=== PATIENT | female | born 1960 | race Caucasian/White ===

== ENCOUNTER 2019-06-16 00:03 | Inpatient (IN) | payer OTHER ==
[~2019-06-16] VITALS: Ht 154.9 cm; Wt 77.3 kg
[~2019-06-16 00:03] MED LIST: Augmentin 875-1 EACH PO; CITA20 PO; CYCL0.05OP BOTHEYES; HYDCHL25 PO; Norco 5-325 Ta1 EACH PO; ONDA4ODT MM; TRAM50 PO
[2019-06-16 00:33] LABS: BASOPHILS ABSOLUTE AUTO 0.02 K/mm3 (0.00-0.23); BASOPHILS PERCENT AUTO 0 % (0-2); EOSINOPHILS ABSOLUTE AUTO 0.01 K/mm3 (0.00-0.68); EOSINOPHILS PERCENT AUTO 0 % (0-6); Hematocrit 48.5 % (33.0-51.0); Hemoglobin 16.1 g/dL (11.5-16.0); IMMATURE GRAN ABSOLUTE AUTO 0.03 K/mm3 (0.00-0.10); IMMATURE GRAN PERCENT AUTO 0 % (0-1); LYMPHOCYTES ABSOLUTE AUTO 1.58 K/mm3 (0.84-5.20); LYMPHOCYTES PERCENT AUTO 14 % (21-46); MONOCYTES ABSOLUTE AUTO 0.49 K/mm3 (0.16-1.47); MONOCYTES PERCENT AUTO 4 % (4-13); Mean Corpuscular HGB Conc 33.2 g/dL (31.5-36.5); Mean Corpuscular Volume 91 fL (80-100); Mean Platelet Volume 9.7 fL (9.1-12.4); NEUTROPHILS PERCENT AUTO 82 % (41-73); Platelet Count 285 K/mm3 (150-400); RDW Coefficient Variation 12.7 % (11.7-14.2); Red Blood Cell Count 5.36 M/mm3 (3.80-5.20); White Blood Cell Count 11.73 K/mm3 (4.00-11.30)
[2019-06-16 00:51] LABS: Alanine Aminotransfer (ALT/SGP 832 U/L (12-78); Albumin, Blood 4.2 g/dL (3.4-5.0); Albumin/Globulin Ratio 0.9 (0.8-1.8); Alk Phos 292 U/L (50-136); Anion Gap 12 mmol/L (6-16); Aspartate Aminotrans (AST/SGOT 377 U/L (12-37); Bilirubin, Total 1.2 mg/dL (0.1-1.0); Blood Urea Nitrogen 25 mg/dL (8-24); Bun/Creatinine Ratio 28.5 (12.0-20.0); CO2, Blood 25 mmol/L (21-32); Calcium, Blood 10.4 mg/dL (8.5-10.1); Chloride, Blood 103 mmol/L (98-108); Creatinine, Blood 0.88 mg/dL (0.40-1.00); Globulin, Blood 4.9 g/dL (2.2-4.0); Glomerular Filtration Rate >60 (60-); Glucose, Blood 160 mg/dL (70-99); Potassium, Blood 3.5 mmol/L (3.5-5.5); Sodium, Blood 140 mmol/L (136-145); Total Protein, Blood 9.1 g/dL (6.4-8.2)
--- NOTE | 2019-06-16 03:38 | NUR ---
NEW ADMIT CAME FROM ER WITH SPOUSE, DX ACUTE PANCREATITIS. PT ABLE TO STAND AND TRANSFER TO BED WITH MIN ASSIST BUT VERY WEAK, ILL APPEARING. PT ON 1L NC SPO2 AT 99%, REMOVED OXYGEN. PAIN IS TOLERABLE AT THIS TIME SO IS NAUSEA, PT RECEIVED DILAUDID AND PHENERGAN JUST PRIOR TO ARRIVAL TO FLOOR. PT ORIENTED TO ROOM LAYOUT AND CALL SYSTEM. REVIEWED ORDERS WITH PT AND SPOUSE.
[2019-06-16 04:09] LABS: CHOL/HDL RATIO 2.9; Cholesterol 243 mg/dL (50-200); HDL Cholesterol 83 mg/dL (>39); LDL/HDL RATIO 1.7; Low Density Lipoprotein Chol 139 mg/dL (0-110); Triglycerides 107 mg/dL (30-160); Very Low Density Lipoprot Chol 21 mg/dL (6-32)
--- NOTE | 2019-06-16 05:33 | NUR ---
PT HAS DONE WELL SINCE ARRIVING TO FLOOR. STATES PAIN AND NAUSEA ARE TOLERABLE. CONT NPO WITH IVF AND PAIN AND NAUSEA MANAGEMENT. CALL LIGHT IN REACH.
[2019-06-16 13:24] LABS: Hematocrit 42.9 % (33.0-51.0); Hemoglobin 13.9 g/dL (11.5-16.0); Mean Corpuscular HGB Conc 32.4 g/dL (31.5-36.5); Mean Corpuscular Volume 93 fL (80-100); Mean Platelet Volume 9.6 fL (9.1-12.4); Platelet Count 233 K/mm3 (150-400); RDW Coefficient Variation 13.1 % (11.7-14.2); RDW Standard Deviation 44.6 fL (35.1-46.3); Red Blood Cell Count 4.64 M/mm3 (3.80-5.20); White Blood Cell Count 10.06 K/mm3 (4.00-11.30)
[2019-06-16 14:25] LABS: Alanine Aminotransfer (ALT/SGP 535 U/L (12-78); Albumin, Blood 3.4 g/dL (3.4-5.0); Albumin/Globulin Ratio 0.8 (0.8-1.8); Alk Phos 203 U/L (50-136); Anion Gap 8 mmol/L (6-16); Aspartate Aminotrans (AST/SGOT 163 U/L (12-37); Bilirubin, Total 0.7 mg/dL (0.1-1.0); Blood Urea Nitrogen 20 mg/dL (8-24); Bun/Creatinine Ratio 26.4 (12.0-20.0); CO2, Blood 26 mmol/L (21-32); Chloride, Blood 107 mmol/L (98-108); Creatinine, Blood 0.76 mg/dL (0.40-1.00); Glomerular Filtration Rate >60 (60-); Glucose, Blood 110 mg/dL (70-99); Potassium, Blood 3.1 mmol/L (3.5-5.5); Sodium, Blood 141 mmol/L (136-145); Total Protein, Blood 7.4 g/dL (6.4-8.2)
[2019-06-16 14:26] LABS: Calcium, Blood 8.3 mg/dL (8.5-10.1)
--- NOTE | 2019-06-16 18:00 | NUR ---
SHIFT SUMMARY PT BEEN NPO. REPORTS STARTING TO FEEL BETTER. PT FAMILY IN/OUT OF ROOM TO SEE PT. PT VOIDING. PT BEEN ASSISTED WITH ADL'S PRN.
--- NOTE | 2019-06-16 18:26 | NUR ---
IMAGING IN ROOM.
[2019-06-17 05:04] LABS: Alanine Aminotransfer (ALT/SGP 338 U/L (12-78); Albumin, Blood 2.8 g/dL (3.4-5.0); Albumin/Globulin Ratio 0.7 (0.8-1.8); Alk Phos 155 U/L (50-136); Anion Gap 9 mmol/L (6-16); Aspartate Aminotrans (AST/SGOT 88 U/L (12-37); Bilirubin, Total 1.1 mg/dL (0.1-1.0); Blood Urea Nitrogen 15 mg/dL (8-24); Bun/Creatinine Ratio 22.5 (12.0-20.0); CO2, Blood 22 mmol/L (21-32); Calcium, Blood 7.7 mg/dL (8.5-10.1); Chloride, Blood 108 mmol/L (98-108); Creatinine, Blood 0.67 mg/dL (0.40-1.00); Globulin, Blood 3.9 g/dL (2.2-4.0); Glomerular Filtration Rate >60 (60-); Glucose, Blood 80 mg/dL (70-99); Potassium, Blood 2.8 mmol/L (3.5-5.5); Sodium, Blood 139 mmol/L (136-145); Total Protein, Blood 6.7 g/dL (6.4-8.2)
--- NOTE | 2019-06-17 06:17 | NUR ---
PT HAS DONE WELL DURING NIGHT. STATES PAIN HAS IMPROVED OVERALL AND DENIES ANY NAUSEA. LIPASE IS BETTER THIS AM HOWEVER K+ WAS LOWER. CALLED DR. ASH AND OBTAINED ORDER FOR 40MEQ OF KCL. PT STILL NPO, IVF INFUSING WITH KCL RUNNING CONCURRENTLY. CALL LIGHT IN REACH. WILL REPORT OFF.
--- NOTE | 2019-06-17 07:45 | NUR ---
pt reports pain ruq abd mild nausea pt using ice chips to keep her mouth from being dry nut she spits them out stated overall the pain is much better 2-3/10
--- NOTE | 2019-06-17 10:44 | NUR ---
pt req pain meds fent 25mcg given pt has loose bm with some small chuncks pt stated it had been several days pt had some cramping off and on earlier with gas offered meds earlier pt declined pt just had a shower
--- NOTE | 2019-06-17 16:35 | NUR ---
dr denney by to see pt
--- NOTE | 2019-06-17 18:00 | NUR ---
pt visiting with friends and family
--- NOTE | 2019-06-18 03:29 | NUR ---
SHIFT SUMMARY PT APPEARS TO HAVE SLEPT T/O MOST OF SHIFT W/FAMILY AT BEDSIDE. IS NPO, MEDICATED ONCE FOR N/V W/ IV ZOFRAN. REPORTS PAIN AT TOLERABLE LEVEL W/ 25MCG FENTANYL. IND WITH SBA TO BATHROOM. WILL CONT TO MONITOR AND GIVE REPORT TO ONCOMING RN.
[2019-06-18 04:16] LABS: BASOPHILS ABSOLUTE AUTO 0.03 K/mm3 (0.00-0.23); BASOPHILS PERCENT AUTO 0 % (0-2); EOSINOPHILS ABSOLUTE AUTO 0.01 K/mm3 (0.00-0.68); EOSINOPHILS PERCENT AUTO 0 % (0-6); Hematocrit 38.1 % (33.0-51.0); IMMATURE GRAN ABSOLUTE AUTO 0.05 K/mm3 (0.00-0.10); IMMATURE GRAN PERCENT AUTO 1 % (0-1); LYMPHOCYTES ABSOLUTE AUTO 1.08 K/mm3 (0.84-5.20); LYMPHOCYTES PERCENT AUTO 10 % (21-46); MONOCYTES ABSOLUTE AUTO 0.79 K/mm3 (0.16-1.47); MONOCYTES PERCENT AUTO 7 % (4-13); Mean Corpuscular HGB 29.6 pg (26.0-34.0); Mean Corpuscular HGB Conc 31.5 g/dL (31.5-36.5); Mean Corpuscular Volume 94 fL (80-100); Mean Platelet Volume 9.5 fL (9.1-12.4); NEUTROPHILS ABSOLUTE AUTO 8.85 K/mm3 (1.96-9.15); NEUTROPHILS PERCENT AUTO 82 % (41-73); Platelet Count 170 K/mm3 (150-400); RDW Coefficient Variation 13.1 % (11.7-14.2); RDW Standard Deviation 45.1 fL (35.1-46.3); Red Blood Cell Count 4.05 M/mm3 (3.80-5.20); White Blood Cell Count 10.81 K/mm3 (4.00-11.30)
[2019-06-18 04:39] LABS: Magnesium, Blood 1.9 mg/dL (1.6-2.4)
[2019-06-18 04:45] LABS: Alanine Aminotransfer (ALT/SGP 219 U/L (12-78); Albumin, Blood 2.6 g/dL (3.4-5.0); Albumin/Globulin Ratio 0.7 (0.8-1.8); Alk Phos 121 U/L (50-136); Anion Gap 10 mmol/L (6-16); Aspartate Aminotrans (AST/SGOT 49 U/L (12-37); Bilirubin, Total 1.1 mg/dL (0.1-1.0); Blood Urea Nitrogen 14 mg/dL (8-24); Bun/Creatinine Ratio 22.8 (12.0-20.0); CO2, Blood 22 mmol/L (21-32); Calcium, Blood 7.8 mg/dL (8.5-10.1); Chloride, Blood 107 mmol/L (98-108); Creatinine, Blood 0.61 mg/dL (0.40-1.00); Globulin, Blood 3.9 g/dL (2.2-4.0); Glomerular Filtration Rate >60 (60-); Glucose, Blood 76 mg/dL (70-99); Potassium, Blood 2.8 mmol/L (3.5-5.5); Sodium, Blood 139 mmol/L (136-145); Total Protein, Blood 6.5 g/dL (6.4-8.2)
--- NOTE | 2019-06-18 17:35 | NUR ---
SUMMARY NO ACUTE CHANGES T/O SHIFT. PT REQUESTED HCTZ ORDERED BUT DR VELÁSQUEZ EXPLAINED TO PT THAT K WAS LOW AND HCTZ MAY BE CONTRIBUTING TO PANCREATITIS. PT VERBALIZED UNDERSTANDING. PT REC'D NS BOLUS AND IS RECEIVING K RIDER AT THIS TIME. PT UNABLE TO TOLERATE K RIDER AT ORDERED RATE, RUNNING AT 35 ML/HR CONCURRENTLY W/IV FLUIDS PER CLINICAL JUDGEMENT FOR PT COMFORT TO IV SITE. PT AMBULATED IN HALLS TWICE DURING SHIFT W/SPOUSE. CALL LIGHT IN REACH.
--- NOTE | 2019-06-19 03:58 | NUR ---
SHIFT SUMMARY PT AWAKE FOR MOST OF SHIFT. REPORTS SHE IS A LITTLE ANXIOUS AND UNCOMFORTABLE W/ C/O LOWER BACK PAIN; STATES HEAT PAD, REPOSITIONING AND PAIN MEDICATION HELPS TO MANAGE PAIN. HAD ONE EPISODE OF NAUSEA, MEDICATED PER EMAR AND COOL CLOTH GIVEN. STATES ABD IS LESS DISTENTED TONIGHT AND FEELS MORE CONFORTABLE. FAMILY AT BEDSIDE, VERY SUPPORTIVE. IND IN ROOM AND TO BATHROOM. REPORTS 3 LIQUID BM DURING SHIFT. IS CURRENTLY RESTING IN BED WITH CALL LIGHT IN REACH. WILL CONT TO MONITOR AND GIVE REPORT TO ONCOMING RN.
--- NOTE | 2019-06-19 04:12 | NUR ---
SPOKE TO DR ASH R/T PT BEING NPO AND NEEDING NEW IVF ORDERS. NEW IVF ORDERS OBTAINED, SEE EMAR.
[2019-06-19 04:45] LABS: BASOPHILS ABSOLUTE AUTO 0.02 K/mm3 (0.00-0.23); BASOPHILS PERCENT AUTO 0 % (0-2); EOSINOPHILS ABSOLUTE AUTO 0.01 K/mm3 (0.00-0.68); EOSINOPHILS PERCENT AUTO 0 % (0-6); Hematocrit 34.8 % (33.0-51.0); Hemoglobin 11.1 g/dL (11.5-16.0); IMMATURE GRAN ABSOLUTE AUTO 0.04 K/mm3 (0.00-0.10); IMMATURE GRAN PERCENT AUTO 0 % (0-1); LYMPHOCYTES PERCENT AUTO 10 % (21-46); MONOCYTES PERCENT AUTO 9 % (4-13); Mean Corpuscular HGB 29.8 pg (26.0-34.0); Mean Corpuscular HGB Conc 31.9 g/dL (31.5-36.5); Mean Corpuscular Volume 94 fL (80-100); Mean Platelet Volume 9.7 fL (9.1-12.4); NEUTROPHILS ABSOLUTE AUTO 7.22 K/mm3 (1.96-9.15); NEUTROPHILS PERCENT AUTO 80 % (41-73); Platelet Count 183 K/mm3 (150-400); RDW Coefficient Variation 12.8 % (11.7-14.2); RDW Standard Deviation 44.2 fL (35.1-46.3); Red Blood Cell Count 3.72 M/mm3 (3.80-5.20); White Blood Cell Count 8.99 K/mm3 (4.00-11.30)
[2019-06-19 05:08] LABS: Alanine Aminotransfer (ALT/SGP 148 U/L (12-78); Albumin, Blood 2.3 g/dL (3.4-5.0); Albumin/Globulin Ratio 0.6 (0.8-1.8); Alk Phos 100 U/L (50-136); Anion Gap 7 mmol/L (6-16); Aspartate Aminotrans (AST/SGOT 38 U/L (12-37); Bilirubin, Total 0.7 mg/dL (0.1-1.0); Blood Urea Nitrogen 16 mg/dL (8-24); Bun/Creatinine Ratio 32.3 (12.0-20.0); CO2, Blood 22 mmol/L (21-32); Chloride, Blood 112 mmol/L (98-108); Globulin, Blood 4.1 g/dL (2.2-4.0); Glomerular Filtration Rate >60 (60-); Glucose, Blood 86 mg/dL (70-99); Potassium, Blood 3.1 mmol/L (3.5-5.5); Sodium, Blood 141 mmol/L (136-145); Total Protein, Blood 6.4 g/dL (6.4-8.2)
--- NOTE | 2019-06-19 17:10 | NUR ---
SUMMARY NO ACUTE CHANGES T/O SHIFT. PT REC'D K RIDER, WHICH IS COMPLETE. PT TEARFUL THIS AM, REPORTING HAVING DIFFICULTY SLEEPING AND VERY FATIGUED. OBTAINED ORDERS FOR AMBIEN AT HS. PT C/O BACK PAIN. LIDODERM PATCH ORDERED AND PLACED TO BACK. MEDICATED THIS EVENING W/50 MCG FENTANYL PER ORDERS FOR BACK PAIN WHICH PT REPORTED PROVIDED LITTLE RELIEF. PT USING K PAD FOR COMFORT. STARTED ON FULL LIQUID DIET. TAKING SLOWLY AND APPEARS TO BE TOLERATING WELL. HAS BEEN HAVING LIQUID BMS, DR VELÁSQUEZ AWARE. PT AMBULATED MULTIPLE TIMES IN HALLWAY W/FAMILY MEMBERS. CALL LIGHT IN REACH. IV INFUSING W/O DIFFICULTY.
--- NOTE | 2019-06-20 04:59 | NUR ---
SHIFT SUMMARY: PT DENIES N/V AND ABD TENDERNESS THROUGHOUT SHIFT. TOLERATING FULL LIQUID DIET. C/O LOWER BACK PAIN WHICH HAS BEEN MANAGED WITH 50MCG FENT AND HEATING PAD. PT STARTED ON 10MG AMBIEN FOR INSOMNIA. PT APPEARS TO BE SLEEPING THROUGHOUT SHIFT. PT OOB TO BATHROOM WITH ONE MINIMAL ASSIST. VOIDING WELL. FLUIDS INFUSING PER EMAR.
--- NOTE | 2019-06-20 13:51 | NUR ---
PT LEFT WITH TRANSPORT TO GO TO CT
--- NOTE | 2019-06-20 14:15 | NUR ---
PT RETURNED TO ROOM AFTER CT
--- NOTE | 2019-06-20 16:06 | NUR ---
SHIFT SUMMARY PT A&OX4, ABD TENDERNESS WITH L SIDE PAIN. PAIN MANAGED WITH 25 MCGS FENT X1; BACK PAIN MANAGED WITH LIDOCAINE PATCH AND KPAD. SHAHID PO FULL LIQ LOW FAT DIET; DENIES N&V. AMB INDEPENDENT TO [facility] AND IN HALLWAY. GEN SURGERY CONSULT CALLED TO DR DOMINGUEZ. CT WITH CONTRAST COMPLETED TODAY. WILL REPORT TO ONCOMING NIRMAL RODRÍGUEZ.
--- NOTE | 2019-06-20 17:51 | NUR ---
Patient gave permission for care tomorrow.
--- NOTE | 2019-06-21 03:19 | NUR ---
SHIFT SUMMARY A/OX4 WITH VSS AND NO ACUTE CHANGES THIS SHIFT. HAD ONE EPISODE OF N/V AT BEGINNING OF SHIFT. OOB SEVERAL TIMES TO BATHROOM WITH SBA; VOIDING WITHOUT DIFFICULTY. HAS CLINIMIX RUNNING PER ORDERS. APPEARS TO HAVE SLEPT T/O SHIFT. IS CURRENTLY RESTING IN BED WITH CALL LIGHT IN REACH. WILL CONTINUE TO MONITOR AND GIVE REPORT TO ONCOMING RN.
[2019-06-21 04:18] LABS: BASOPHILS ABSOLUTE AUTO 0.03 K/mm3 (0.00-0.23); BASOPHILS PERCENT AUTO 0 % (0-2); EOSINOPHILS ABSOLUTE AUTO 0.04 K/mm3 (0.00-0.68); EOSINOPHILS PERCENT AUTO 0 % (0-6); Hematocrit 32.9 % (33.0-51.0); Hemoglobin 10.9 g/dL (11.5-16.0); IMMATURE GRAN PERCENT AUTO 1 % (0-1); LYMPHOCYTES ABSOLUTE AUTO 1.09 K/mm3 (0.84-5.20); LYMPHOCYTES PERCENT AUTO 12 % (21-46); MONOCYTES ABSOLUTE AUTO 0.98 K/mm3 (0.16-1.47); MONOCYTES PERCENT AUTO 11 % (4-13); Mean Corpuscular HGB 29.9 pg (26.0-34.0); Mean Corpuscular HGB Conc 33.1 g/dL (31.5-36.5); Mean Platelet Volume 9.4 fL (9.1-12.4); NEUTROPHILS ABSOLUTE AUTO 6.84 K/mm3 (1.96-9.15); NEUTROPHILS PERCENT AUTO 75 % (41-73); Platelet Count 245 K/mm3 (150-400); RDW Coefficient Variation 12.7 % (11.7-14.2); RDW Standard Deviation 42.1 fL (35.1-46.3); Red Blood Cell Count 3.65 M/mm3 (3.80-5.20); White Blood Cell Count 9.08 K/mm3 (4.00-11.30)
[2019-06-21 04:19] LABS: Mean Corpuscular Volume 90 fL (80-100)
[2019-06-21 04:36] LABS: Alanine Aminotransfer (ALT/SGP 119 U/L (12-78); Albumin, Blood 2.1 g/dL (3.4-5.0); Albumin/Globulin Ratio 0.5 (0.8-1.8); Alk Phos 90 U/L (50-136); Anion Gap 6 mmol/L (6-16); Aspartate Aminotrans (AST/SGOT 47 U/L (12-37); Bilirubin, Total 0.3 mg/dL (0.1-1.0); Blood Urea Nitrogen 14 mg/dL (8-24); Bun/Creatinine Ratio 29.5 (12.0-20.0); CO2, Blood 27 mmol/L (21-32); Chloride, Blood 106 mmol/L (98-108); Creatinine, Blood 0.48 mg/dL (0.40-1.00); Glomerular Filtration Rate >60 (60-); Glucose, Blood 148 mg/dL (70-99); Potassium, Blood 2.9 mmol/L (3.5-5.5); Sodium, Blood 139 mmol/L (136-145); Total Protein, Blood 6.1 g/dL (6.4-8.2)
--- NOTE | 2019-06-21 13:02 | NUR ---
Patient gave student RN, Ibrahima Estrada on 06/21/2019 to access patient records.
--- NOTE | 2019-06-21 16:05 | NUR ---
SHIFT SUMMARY PT A&OX4, VSS, ANXIETY IMPROVED, ABD TENDERNESS AND DISTENSION IMPROVED TODAY, DENIES NAUSEA W/LOW PO INTAKE, CLINIMIX AND KCL INFUSING PER ORDERS. DENIES PAIN. AMB INDEPENDENT IN ROOM TO BRP AND IN HALLWAY W/FWW FOR SAFETY. VOIDING WELL. BM X1 TODAY SOFT FORMED. FAMILY BEDSIDE. WILL REPORT TO NEXT RN.
--- NOTE | 2019-06-22 04:09 | NUR ---
SHIFT SUMMARY PT IS A/O AND IND. IN ROOM. TOLERATING FULL LIQUID DIET WELL. PT HAS BEEN ON CLINIMIX PER ORDERS. PT REPORTS HAVING SMALL BM'S AND VOIDING. PT C/O CHRONIC BACK PAIN; TYLENOL WAS ORDERED PER HOSPITALIST, BUT THEN PT DECLINED THE TYLENOL SHE FELT BETTER AFTER SLEEPING FOR A LITTLE WHILE. PT HAS AMBULATED TO BATHROOM SEVERAL TIMES. ASSISTED WITH ADL'S PRN.
[2019-06-22 04:31] LABS: Anion Gap 5 mmol/L (6-16); Blood Urea Nitrogen 15 mg/dL (8-24); Bun/Creatinine Ratio 28.5 (12.0-20.0); CO2, Blood 29 mmol/L (21-32); Calcium, Blood 8.3 mg/dL (8.5-10.1); Chloride, Blood 104 mmol/L (98-108); Creatinine, Blood 0.53 mg/dL (0.40-1.00); Glomerular Filtration Rate >60 (60-); Glucose, Blood 123 mg/dL (70-99); Potassium, Blood 3.3 mmol/L (3.5-5.5); Sodium, Blood 138 mmol/L (136-145)
--- NOTE | 2019-06-22 07:00 | NUR ---
recvd report from previous shift shagufta Maldonado. on rounding, pt a/0 x 4, pleasant/cooperative, independent in room. pt denies pain at this time. encouraged pt to be OOB, ambulate.
--- NOTE | 2019-06-22 11:05 | NUR ---
SPOKE WITH CEREAL POPPER AND HOSPITALIST FOLLOWING DIETITIAN CONSULTING WITH PT, ADVANCE DIET TOLERATED WITH THE ULTIMATE GOAL OF LOWFAT REGULAR DIET
--- NOTE | 2019-06-22 18:08 | NUR ---
shift summary: vss, no acute changes, pt remained a/o x 4, pleasant/cooperative, ambulated independenty in room and in hallways multiples times today. pt has had family visiting. pt has had multiple liquid stools this shift, has tolerated advancing diet with no n/v. pt denies need for pain medication t/o shift. pt remained independent in room.
--- NOTE | 2019-06-23 07:07 | NUR ---
PT VSS T/O NIGHT. PT CONT TO C/O DULL ACHE IN LUQ, REP PAIN OVERALL IMPROVED AND DECLINED NEED FOR PAIN MEDS. PT HAD NO C/O N/V, REP LESS URGENCY W/BM. PT INDEP IN ROOM, IS USING CALL LIGHT FOR ASSISTANCE, WILL CONT TO MONITOR UNTIL REP GIVEN TO ONCOMING RN.
[2019-06-23] MEDS ORDERED: BUSP5 PO (13:50)
[2019-06-23] MEDS ORDERED: CREON DR 12,001 EACH PO (13:51)
[2019-06-23] MEDS ORDERED: Prinivil10 MG PO (13:52)
[2019-06-23] MEDS ORDERED: PANT40 PO (13:52)
[2019-06-23] MEDS ORDERED: ALDACTONE25 MG PO (13:53)
[2019-06-23] MEDS ORDERED: ONDA4 PO (13:53)
[2019-06-23] MEDS ORDERED: TRAM50 PO (13:54)
--- NOTE | 2019-06-23 16:40 | NUR ---
DISCHARGE SUMMARY PT D/C HOME WITH SPOUSE AT APPROX 1545 TODAY VIA WHEELCHAIR. DISCHARGE INSTRUCTIONS AND PERSONAL BELONGINGS PROVIDED TO PT/FAMILY PRIOR TO D/C. SCRIPTS FAXED TO [facility] IN [place]. PT DENIES PAIN OR NEED FOR PAIN MEDICATION AT TIME OF D/C. PT IND IN ROOM AND ABLE TO AMBULATE IND. REPORTS VOIDING/HAVING BM WITHOUT DIFFICUTLY AND TOLERATING REGULAR DIET. PT VERBALIZED UNDERSTANDING OF D/C INSTRUCTIONS AND DECLINED ANY CONCERNS OR QUESTIONS.
== END 2019-06-23 15:30 | disposition home or self-care (01) | DRG 440 ==
LOC: ER 00:03 → SURS 03:01
PROVIDERS: Emergency Medicine; Internal Medicine; ADMIT Internal Medicine
DX: K85.90 Acute pancreatitis without necrosis or infection, unspecified (principal); K80.80 Other cholelithiasis without obstruction; K29.80 Duodenitis without bleeding; E83.52 Hypercalcemia; I10 Essential (primary) hypertension; F32.9 Major depressive disorder, single episode, unspecified; E87.6 Hypokalemia; E86.0 Dehydration; K59.00 Constipation, unspecified; F41.9 Anxiety disorder, unspecified; T50.2X5A Adverse effect of carbonic-anhydrase inhibitors, benzothiadiazides and other diuretics, initial encounter; K21.9 Gastro-esophageal reflux disease without esophagitis; E66.9 Obesity, unspecified; Z68.31 Body mass index [BMI] 31.0-31.9, adult
CPT/HCPCS: 36415; 74160; 74176; 76705; 80048; 80053; 80061; 83690; 83735; 85025; 85027; 93005; 93010; 96361; 96374; 96375; 96376; 99285-25; A9270-GY; C9113; J1170; J1650; J2405; J2550; J3010; J3480; J7030; Q9967

== ENCOUNTER 2019-10-20 07:49 | Day surgery (SDC) | payer OTHER ==
[~2019-10-20] VITALS: Ht 154.9 cm; Wt 70.6 kg
[~2019-10-20 07:49] MED LIST changes: +ALDACTONE25 MG PO; +BUSP5 PO; +CREON DR 12,001 EACH PO; +ONDA4 PO; +PANT40 PO; +Prinivil10 MG PO; +VENTOLIN INH
--- NOTE | 2019-10-20 08:16 | NUR ---
PT ADMITTED TO [facility]. AGREES WITH PLANNED SURGERY. LUNG SOUNDS CLEAR.
--- NOTE | 2019-10-20 11:28 | NUR ---
PT #1 C/O "I REALLY DON'T FEEL GOOD AND I HAVE TO GO TO THE BATHROOM. PROVIDED BSC. ASSISTED PT TO FEET, DENIED DIZZINESS. PT ABLE TO VOID W/O DIFFICULTY. PT BACK TO BED WITH WARM BLANKETS PROVIDED, SNACK, FLUIDS, PAIN PILL FOR INCREASE IN PAIN TO 5/10. Dressing to procedure site clean, dry, intact with no visible drainage, swelling, erythema or bruising noted. VSS. WILL CONTINUE TO MINITOR.
--- NOTE | 2019-10-20 12:29 | NUR ---
Patient up to Ambulate independently. Gait steady. Discharge instructions reviewed with patient. Patient verbalizes understanding. Copy given to patient to take home. Patient States Post-Procedure ride home has been arranged. Dressing to procedure site clean, dry, intact with no visible drainage, swelling, erythema or bruising noted. Discharged via wheelchair to private car for ride home.
== END 2019-10-20 22:40 | disposition home or self-care (01) ==
LOC: ORSCMMR 07:49 → ORD 09:30 → ORSCMMR 09:30
PROVIDERS: Surgery
PROC: 0FT44ZZ Resection of Gallbladder, Percutaneous Endoscopic Approach (ICD-10-PCS; principal; 2019-10-20 09:30)
PROC: BF031ZZ Plain Radiography of Gallbladder and Bile Ducts using Low Osmolar Contrast (ICD-10-PCS; principal; 2019-10-20 09:30)
DX: K80.10 Calculus of gallbladder with chronic cholecystitis without obstruction (principal); I10 Essential (primary) hypertension; K21.9 Gastro-esophageal reflux disease without esophagitis; J45.909 Unspecified asthma, uncomplicated; Z79.899 Other long term (current) drug therapy
CPT/HCPCS: 74300; 88304; A9270-GY; C1729; J0690; J1100; J2250; J2405; J2704; J2710; J3010; J7120

== ENCOUNTER 2022-01-07 08:58 | Inpatient (IN) | payer OTHER ==
[~2022-01-07] VITALS: Ht 154.9 cm; Wt 77.0 kg
[~2022-01-07 08:58] MED LIST changes: +LORA10ER PO; +OMEP20ER PO; +THERA-D2000 UNIT PO
[2022-01-07 10:07] LABS: Source, Urine Clean Catch
[2022-01-07 10:13] LABS: Appearance, Urine Clear (Clear); Bilirubin, Urine Neg (Neg); Blood, Urine 1+ (Neg); Color, Urine Yellow (P-Yellow); Glucose Qualitative, Urine Neg (Neg); Ketones, Urine Neg (Neg); Leukocyte Esterase, Urine Neg (Neg); Nitrite, Urine Neg (Neg); Protein, Urine Neg (Neg); Urobilinogen, Urine 2+ (Normal)
[2022-01-07 10:40] LABS: BASOPHILS ABSOLUTE AUTO 0.03 K/mm3 (0.00-0.23); BASOPHILS PERCENT AUTO 0 % (0-2); EOSINOPHILS ABSOLUTE AUTO 0.01 K/mm3 (0.00-0.68); EOSINOPHILS PERCENT AUTO 0 % (0-6); Hematocrit 43.8 % (33.0-51.0); Hemoglobin 14.6 g/dL (11.5-16.0); IMMATURE GRAN ABSOLUTE AUTO 0.03 K/mm3 (0.00-0.10); IMMATURE GRAN PERCENT AUTO 0 % (0-1); LYMPHOCYTES ABSOLUTE AUTO 0.76 K/mm3 (0.84-5.20); LYMPHOCYTES PERCENT AUTO 8 % (21-46); MONOCYTES ABSOLUTE AUTO 0.49 K/mm3 (0.16-1.47); MONOCYTES PERCENT AUTO 5 % (4-13); Mean Corpuscular HGB 30.1 pg (26.0-34.0); Mean Corpuscular HGB Conc 33.3 g/dL (31.5-36.5); Mean Corpuscular Volume 90 fL (80-100); Mean Platelet Volume 9.8 fL (9.1-12.4); NEUTROPHILS ABSOLUTE AUTO 7.74 K/mm3 (1.96-9.15); NEUTROPHILS PERCENT AUTO 86 % (41-73); Platelet Count 201 K/mm3 (150-400); RDW Coefficient Variation 12.7 % (11.7-14.2); Red Blood Cell Count 4.85 M/mm3 (3.80-5.20); White Blood Cell Count 9.06 K/mm3 (4.00-11.30)
[2022-01-07 10:44] LABS: Bacteria Few /hpf; Red Blood Cells, Urine 0-2 /hpf (0-2); Squamous Epithelial Cells Rare /hpf (Few); White Blood Cells, Urine 0-2 /hpf (0-5)
[2022-01-07 10:51] LABS: Influenza A, PCR NEGATIVE (NEGATIVE); Influenza B, PCR NEGATIVE (NEGATIVE); Resp Syncytial Virus, PCR NEGATIVE (NEGATIVE); SARS-Cov-2 (COVID-19) PCR, MMC NEGATIVE (NEGATIVE)
[2022-01-07 11:05] LABS: Alanine Aminotransfer (ALT/SGP 565 U/L (12-78); Albumin, Blood 3.4 g/dL (3.4-5.0); Albumin/Globulin Ratio 0.8 (0.8-1.8); Alk Phos 116 U/L (50-136); Anion Gap 5 mmol/L (6-16); Aspartate Aminotrans (AST/SGOT 673 U/L (12-37); Bilirubin, Direct 1.5 mg/dL (0.0-0.3); Bilirubin, Indirect 0.5 mg/dL (0.1-0.7); Blood Urea Nitrogen 17 mg/dL (8-24); Bun/Creatinine Ratio 19.9 (12.0-20.0); CO2, Blood 24 mmol/L (21-32); Calcium, Blood 8.7 mg/dL (8.5-10.1); Chloride, Blood 111 mmol/L (98-108); Creatinine, Blood 0.86 mg/dL (0.40-1.00); Glomerular Filtration Rate 77 (60-); Glucose, Blood 122 mg/dL (70-99); Magnesium, Blood 1.9 mg/dL (1.6-2.4); Potassium, Blood 4.1 mmol/L (3.5-5.5); Sodium, Blood 140 mmol/L (136-145); Total Protein, Blood 7.4 g/dL (6.4-8.2)
[2022-01-07 14:08] LABS: International Normalized Ratio 0.99; Prothrombin Time Results 10.4 Sec (9.7-11.5)
--- NOTE | 2022-01-07 16:48 | NUR ---
SHIFT SUMMARY PATIENT IS ALERT AND ORIENTED. PATIENT ARRIVED TO MEDICAL FLOOR AT 1530 TODAY. PATIENT HAS HAD BEHAVIORAL HEALTH CLINICIAN PUMP SET UP FOR PANCREATITIS ADMISSION. PATIENT HAS COMPLAINED OF PAIN AND MEDICATED PER EMAR. PATIENT HAS HAD N/V THIS SHIFT. PATIENT IS IND IN ROOM. VITAL SIGNS REVIEWED. CALL LIGHT IN PLACE. BED IN LOCKED AND LOWEST POSITION.
[2022-01-08 05:23] LABS: BASOPHILS ABSOLUTE AUTO 0.02 K/mm3 (0.00-0.23); BASOPHILS PERCENT AUTO 0 % (0-2); EOSINOPHILS PERCENT AUTO 0 % (0-6); Hematocrit 38.9 % (33.0-51.0); Hemoglobin 12.6 g/dL (11.5-16.0); IMMATURE GRAN ABSOLUTE AUTO 0.03 K/mm3 (0.00-0.10); IMMATURE GRAN PERCENT AUTO 0 % (0-1); LYMPHOCYTES PERCENT AUTO 9 % (21-46); MONOCYTES ABSOLUTE AUTO 0.64 K/mm3 (0.16-1.47); MONOCYTES PERCENT AUTO 7 % (4-13); Mean Corpuscular HGB 29.9 pg (26.0-34.0); Mean Corpuscular HGB Conc 32.4 g/dL (31.5-36.5); Mean Corpuscular Volume 92 fL (80-100); Mean Platelet Volume 10.1 fL (9.1-12.4); NEUTROPHILS ABSOLUTE AUTO 7.74 K/mm3 (1.96-9.15); NEUTROPHILS PERCENT AUTO 84 % (41-73); Platelet Count 175 K/mm3 (150-400); RDW Coefficient Variation 13.2 % (11.7-14.2); RDW Standard Deviation 44.4 fL (35.1-46.3); Red Blood Cell Count 4.21 M/mm3 (3.80-5.20); White Blood Cell Count 9.23 K/mm3 (4.00-11.30)
--- NOTE | 2022-01-08 05:32 | NUR ---
ENGINEERING INSPECTION ASSISTANT SUMMARY ADMITTED FOR ACUTE PANCREATITIS. THE PATIENT IS FULL CODE. SHE IS CURRENTLY ON A REC THERAPIST PUMP FOR HER ABDOMINAL PAIN SET AT 10 MCG WITH LOCKOUT AT 10 MINS. PT REPORTS WORSENING PAIN THAT IS IMPROVED WITH REGULAR TYLENOL. NS RUNNING AT 200 ML/HR. SHE HAS BEEN AMBULATING TO THE RESTROOM FREQUENTLY WITH ASSISTANCE DUE TO IV LINES AND PUMPS. PT REPORTING SOME "GAS PAIN" BUT REFUSING MEDICATION FOR IT AT THIS TIME. SHE IS ALERT AND ORIENTED X4, PLEASANT AND COOPERATIVE WITH CARE. CLEAR LIQUID DIET AT THIS TIME.
[2022-01-08 05:47] LABS: Albumin/Globulin Ratio 0.9 (0.8-1.8); Bun/Creatinine Ratio 16.6 (12.0-20.0); Calcium, Blood 7.8 mg/dL (8.5-10.1); Creatinine, Blood 0.78 mg/dL (0.40-1.00); Globulin, Blood 3.5 g/dL (2.2-4.0); Magnesium, Blood 1.8 mg/dL (1.6-2.4); Phosphorus, Blood 2.8 mg/dL (2.5-4.9); Total Protein, Blood 6.5 g/dL (6.4-8.2)
[2022-01-08 08:11] LABS: HBSAG SCREEN Negative (Negative); HCV AB <0.1 (0.0-0.9); HEP A AB, IGM Negative (Negative); HEP B CORE AB, IGM Negative (Negative)
--- NOTE | 2022-01-08 16:13 | NUR ---
SHIFT SUMMARY PATIENT IS ALERT AND ORIENTED. PATIENT HAS HAD NO ACUTE EVENTS THIS SHIFT. VITAL SIGNS REVIEWED. NS WAS REDUCED FROM 200/HR. PATIENT HAS BEEN USING CARDIAC SONOGRAPHER PUMP WITH GOOD RESULTS. PATIENT IS IND TO BATHROOM. PATIENT HAS BEEN HAVING INTERMITTENT N/V BUT DECLINES MEDICATION. PATIENT HAS BEEN PLEASENT AND COOPERATIVE WITH CARE. BED IN LOCKED AND LOWEST POSITION. CALL LIGHT IN PLACE. WILL MONITOR UNTIL SHIFT CHANGE.
--- NOTE | 2022-01-08 22:47 | NUR ---
2110 ASSISTED PT TO BATHROOM AND BACK AGAIN, SHE IS A SBA AND AMBULATED WELL. REPORTS ABD PAIN AT 5/10, GAVE HERSELF A PT DOSE FROM HER CEREAL MILLER. REPORTS A LITTLE NAUSEA EARLIER BUT NONE NOW. PT'S IV WAS LEAKING A LITTLE, A NEW IV WAS PLACED AND THE LAC IV WAS DC'D. NO OTHER APPARENT SIGNS OF DISTRESS. CALL LIGHT IS IN REACH.
--- NOTE | 2022-01-08 23:17 | NUR ---
PT LYING IN BED, DENIES NAUSEA AT THIS TIME. REPORTS PAIN IS ABOUT A 4/10. DENIES NEED FOR ANYTHING AT THIS TIME. NO APPARENT SIGNS OF DISTRESS. DECLINES ANTIEMBOLIC STOCKINGS FOR NOW, WILL POSSIBLY WEAR THEM IN THE MORNING. CALL LIGHT IS IN REACH.
--- NOTE | 2022-01-09 04:22 | NUR ---
0200 PT LYING IN BED, EYES CLOSED, APPEARS TO BE RESTING. BREATHING IS EVEN, UNLABORED. NO APPARENT SIGNS OF DISTRESS. CALL LIGHT IS IN REACH.
--- NOTE | 2022-01-09 04:41 | NUR ---
ASSISTED PT TO BATHROOM AND BACK TO BED AGAIN, PT REPORTS PAIN IS "OK" BUT DID GET A LITTLE WORSE CABRALES SHE GOT UP, SHE GAVE HERSELF A DOSE FROM HER OCCUPATIONAL HEALTH NURSING DIRECTOR. PT REPORTS SHE FELT NAUSEA WHEN SHE GOT UP TO THE BATHROOM BUT WHEN SHE GOT BACK INTO BED IT SUBSIDED AND SHE DOES NOT FEEL LIKE SHE NEEDS ANY MEDS FOR IT AT THIS TIME. PT REQUESTED AND RECIEVED TEA. NO OTHER APPARENT SIGNS OF DISTRESS. CALL LIGHT IS IN REACH.
[2022-01-09 04:43] LABS: BASOPHILS ABSOLUTE AUTO 0.02 K/mm3 (0.00-0.23); BASOPHILS PERCENT AUTO 0 % (0-2); EOSINOPHILS PERCENT AUTO 0 % (0-6); Hematocrit 37.4 % (33.0-51.0); Hemoglobin 12.1 g/dL (11.5-16.0); IMMATURE GRAN ABSOLUTE AUTO 0.05 K/mm3 (0.00-0.10); IMMATURE GRAN PERCENT AUTO 0 % (0-1); LYMPHOCYTES ABSOLUTE AUTO 1.18 K/mm3 (0.84-5.20); LYMPHOCYTES PERCENT AUTO 11 % (21-46); MONOCYTES ABSOLUTE AUTO 0.83 K/mm3 (0.16-1.47); MONOCYTES PERCENT AUTO 7 % (4-13); Mean Corpuscular HGB 29.7 pg (26.0-34.0); Mean Corpuscular HGB Conc 32.4 g/dL (31.5-36.5); Mean Corpuscular Volume 92 fL (80-100); Mean Platelet Volume 9.8 fL (9.1-12.4); NEUTROPHILS ABSOLUTE AUTO 9.19 K/mm3 (1.96-9.15); NEUTROPHILS PERCENT AUTO 82 % (41-73); Platelet Count 159 K/mm3 (150-400); RDW Coefficient Variation 13.2 % (11.7-14.2); Red Blood Cell Count 4.07 M/mm3 (3.80-5.20); White Blood Cell Count 11.27 K/mm3 (4.00-11.30)
--- NOTE | 2022-01-09 04:43 | NUR ---
PT IS AAO X 4, ON RA. PT HAS OCCASIONAL NAUSEA, MOSTLY WITH AMBULATION, BUT DID NOT FEEL LIKE SHE NEEDED ANY MEDICATION FOR IT. PT REPORTS ABD PAIN, USING A CHEF DE PARTIE WITH PT DOSE ONLY.
[2022-01-09 05:14] LABS: Albumin, Blood 2.7 g/dL (3.4-5.0); Albumin/Globulin Ratio 0.7 (0.8-1.8); Bilirubin, Total 0.9 mg/dL (0.1-1.0); Bun/Creatinine Ratio 13.4 (12.0-20.0); Calcium, Blood 7.5 mg/dL (8.5-10.1); Creatinine, Blood 0.6 mg/dL (0.40-1.00); Globulin, Blood 3.7 g/dL (2.2-4.0); Phosphorus, Blood 1.8 mg/dL (2.5-4.9); Potassium, Blood 3.5 mmol/L (3.5-5.5); Total Protein, Blood 6.4 g/dL (6.4-8.2)
--- NOTE | 2022-01-09 06:08 | NUR ---
PT LYING IN BED, EYES CLOSED, APPEARS TO BE RESTING. BREATHING IS EVEN, UNLABORED. NO APPARENT SIGNS OF DISTRESS. CALL LIGHT IS IN REACH. NO OTHER CHANGES THIS SHIFT.
[2022-01-10 04:53] LABS: Albumin, Blood 2.4 g/dL (3.4-5.0); Albumin/Globulin Ratio 0.6 (0.8-1.8); Bilirubin, Total 0.9 mg/dL (0.1-1.0); Calcium, Blood 7.9 mg/dL (8.5-10.1); Creatinine, Blood 0.64 mg/dL (0.40-1.00); Globulin, Blood 3.9 g/dL (2.2-4.0); Phosphorus, Blood 1.5 mg/dL (2.5-4.9); Potassium, Blood 3.3 mmol/L (3.5-5.5); Total Protein, Blood 6.3 g/dL (6.4-8.2)
[2022-01-10 05:23] LABS: BASOPHILS ABSOLUTE AUTO 0.02 K/mm3 (0.00-0.23); BASOPHILS PERCENT AUTO 0 % (0-2); EOSINOPHILS ABSOLUTE AUTO 0.01 K/mm3 (0.00-0.68); EOSINOPHILS PERCENT AUTO 0 % (0-6); Hematocrit 35.3 % (33.0-51.0); Hemoglobin 11.7 g/dL (11.5-16.0); IMMATURE GRAN ABSOLUTE AUTO 0.05 K/mm3 (0.00-0.10); IMMATURE GRAN PERCENT AUTO 1 % (0-1); LYMPHOCYTES ABSOLUTE AUTO 1.23 K/mm3 (0.84-5.20); LYMPHOCYTES PERCENT AUTO 12 % (21-46); MONOCYTES ABSOLUTE AUTO 0.84 K/mm3 (0.16-1.47); MONOCYTES PERCENT AUTO 8 % (4-13); Mean Corpuscular HGB 30.2 pg (26.0-34.0); Mean Corpuscular HGB Conc 33.1 g/dL (31.5-36.5); Mean Corpuscular Volume 91 fL (80-100); NEUTROPHILS ABSOLUTE AUTO 8.53 K/mm3 (1.96-9.15); NEUTROPHILS PERCENT AUTO 80 % (41-73); Platelet Count 152 K/mm3 (150-400); RDW Coefficient Variation 12.9 % (11.7-14.2); RDW Standard Deviation 42.5 fL (35.1-46.3); Red Blood Cell Count 3.87 M/mm3 (3.80-5.20); White Blood Cell Count 10.68 K/mm3 (4.00-11.30)
--- NOTE | 2022-01-10 05:56 | NUR ---
SHIFT SUMMARY: PT IS ALERT AND ORIENTED. PT IS CALM AND COOPERATIVE WITH CARE. PT CALLS APPROPRIATELY. PT IS INDEPENDENT IN THE ROOM. PT REPORTS PAIN BEING WELL CONTROLLED WITH FENTANYL VACCINE MANAGER PUMP. PT DENIES NAUSEA, VOMITING AND SOB. FLUIDS RUNNING ORDERED. PT SLEPT MUCH OF THE NIGHT WHEN NOT DISTURBED. NO ACUTE CHANGES OR COMPLICATIONS THIS SHIFT. BED IN LOW POSITION, CALL LIGHT WITHIN REACH. WILL CONTINUE TO MONITOR.
--- NOTE | 2022-01-10 19:15 | NUR ---
RECEIVED BEDSIDE REPORT FROM DAYSHIFT RN. WILL PROVIDE CARE T/O SHIFT. CALL LT IN REACH. KAYY AT BEDSIDE.
--- NOTE | 2022-01-10 19:23 | NUR ---
SHIFT SUMMARY PATIENT ALERT AND ORIENTED THROUGHOUT SHIFT. TOLERATING FULL LIQUIDS WITH SOME ABD PAIN AFTER EATING. A FEW SUDDEN EPISODES OF NAUSEA WITH SMALL AMOUNT CLEAR LIQUID EMESIS THIS AFTERNOON. PATIENT DECLINED NAUSEA MEDICINE. PAIN IS CONTROLLED WITH PO ACETAMINOPHEN AND FENTANYL DOG BOARDER FOR BREAKTHROUGH. INDEPENDENT IN ROOM. SBA TO AMBULATE IN HALLS. PLAN IS FOR DC HOME AFTER PAIN IS CONTROLLED OFF THE DOG BOARDER. REPORT GIVEN TO PRIMARY CARE PROVIDER RN.
--- NOTE | 2022-01-10 22:33 | NUR ---
PT RESTING QUIETLY. CALL LT IN REACH.
--- NOTE | 2022-01-11 00:20 | NUR ---
PT RESTING QUIETLY. EYES CLOSED. RESP E/U. CALL LT IN REACH.
--- NOTE | 2022-01-11 02:04 | NUR ---
PT RESTING QUIETLY. CALL LT IN REACH.
--- NOTE | 2022-01-11 04:27 | NUR ---
PT AWAKE WAITING FOR LAB TO COME IN AND DRAW HER BLOOD. NO NEEDS AT THIS TIME. CALL LT IN REACH.
--- NOTE | 2022-01-11 04:28 | NUR ---
SHIFT SUMMARY: BEAD INSPECTOR PUMP WITH FENTANYL TO MANAGED PT'S ABDOMINAL PAIN WELL T/O SHIFT. NO REPORTS OF NAUSEA. PT RESTED WELL. NO ACUTE CHANGES. WILL CONTINUE TO PROVIDE CARE UNTIL SHIFT REPORT.
[2022-01-11 04:36] LABS: BASOPHILS ABSOLUTE AUTO 0.02 K/mm3 (0.00-0.23); BASOPHILS PERCENT AUTO 0 % (0-2); EOSINOPHILS ABSOLUTE AUTO 0.05 K/mm3 (0.00-0.68); EOSINOPHILS PERCENT AUTO 1 % (0-6); Hemoglobin 11.2 g/dL (11.5-16.0); IMMATURE GRAN ABSOLUTE AUTO 0.05 K/mm3 (0.00-0.10); IMMATURE GRAN PERCENT AUTO 1 % (0-1); LYMPHOCYTES ABSOLUTE AUTO 1.21 K/mm3 (0.84-5.20); LYMPHOCYTES PERCENT AUTO 13 % (21-46); MONOCYTES ABSOLUTE AUTO 0.74 K/mm3 (0.16-1.47); MONOCYTES PERCENT AUTO 8 % (4-13); Mean Corpuscular HGB 29.9 pg (26.0-34.0); Mean Corpuscular HGB Conc 32.9 g/dL (31.5-36.5); Mean Corpuscular Volume 91 fL (80-100); NEUTROPHILS ABSOLUTE AUTO 7.49 K/mm3 (1.96-9.15); NEUTROPHILS PERCENT AUTO 78 % (41-73); Platelet Count 164 K/mm3 (150-400); RDW Coefficient Variation 12.9 % (11.7-14.2); RDW Standard Deviation 42.6 fL (35.1-46.3); Red Blood Cell Count 3.74 M/mm3 (3.80-5.20); White Blood Cell Count 9.56 K/mm3 (4.00-11.30)
[2022-01-11 05:06] LABS: Albumin, Blood 2.4 g/dL (3.4-5.0); Albumin/Globulin Ratio 0.6 (0.8-1.8); Bilirubin, Total 0.5 mg/dL (0.1-1.0); Bun/Creatinine Ratio 12.9 (12.0-20.0); Calcium, Blood 8.3 mg/dL (8.5-10.1); Creatinine, Blood 0.62 mg/dL (0.40-1.00); Globulin, Blood 3.8 g/dL (2.2-4.0); Magnesium, Blood 1.8 mg/dL (1.6-2.4); Phosphorus, Blood 2.4 mg/dL (2.5-4.9); Potassium, Blood 3.3 mmol/L (3.5-5.5); Total Protein, Blood 6.2 g/dL (6.4-8.2)
--- NOTE | 2022-01-11 05:16 | NUR ---
LACQUER DIPPING MACHINE OPERATOR PUMP CLEARED WITH IRINA ACOSTA RN. NO NEEDS AT THIS TIME. CALL LT IN REACH.
--- NOTE | 2022-01-11 17:07 | NUR ---
SUMMARY PT RESTING QUIETLY IN BED, WAKES EASILY, PT UP INDEP IN THE HALLS, HAS HAD FAMILY IN TO VISIT, PT USED THE STAPLE SHEAR OPERATOR VERY LITTLE, NO NAUSEA, VSS, WILL CONT TO MONITOR
--- NOTE | 2022-01-12 02:58 | NUR ---
HR CREEPING UP TO 120-130S. GIVEN LOPRESSOR 5MG IV. PT WAS INCONT LARGE AMOUNT OF URINE WIHT PREVIOUS TURN AND CHANGE. APPEARS TO BE RESTING QUIETLY.
[2022-01-12 05:08] LABS: BASOPHILS ABSOLUTE AUTO 0.02 K/mm3 (0.00-0.23); BASOPHILS PERCENT AUTO 0 % (0-2); EOSINOPHILS PERCENT AUTO 1 % (0-6); Hematocrit 30.1 % (33.0-51.0); Hemoglobin 9.9 g/dL (11.5-16.0); IMMATURE GRAN ABSOLUTE AUTO 0.03 K/mm3 (0.00-0.10); IMMATURE GRAN PERCENT AUTO 0 % (0-1); LYMPHOCYTES ABSOLUTE AUTO 1.17 K/mm3 (0.84-5.20); LYMPHOCYTES PERCENT AUTO 13 % (21-46); MONOCYTES ABSOLUTE AUTO 0.82 K/mm3 (0.16-1.47); MONOCYTES PERCENT AUTO 9 % (4-13); Mean Corpuscular HGB 30.2 pg (26.0-34.0); Mean Corpuscular HGB Conc 32.9 g/dL (31.5-36.5); Mean Corpuscular Volume 92 fL (80-100); Mean Platelet Volume 9.7 fL (9.1-12.4); NEUTROPHILS ABSOLUTE AUTO 6.73 K/mm3 (1.96-9.15); NEUTROPHILS PERCENT AUTO 76 % (41-73); Platelet Count 176 K/mm3 (150-400); RDW Coefficient Variation 13.1 % (11.7-14.2); RDW Standard Deviation 43.8 fL (35.1-46.3); Red Blood Cell Count 3.28 M/mm3 (3.80-5.20); White Blood Cell Count 8.87 K/mm3 (4.00-11.30)
--- NOTE | 2022-01-12 05:20 | NUR ---
Slept off and on tonight. Up to br wiht stand by assist. Has not used TYPER this evening.
[2022-01-12 05:39] LABS: Magnesium, Blood 1.7 mg/dL (1.6-2.4)
[2022-01-12 05:40] LABS: Albumin, Blood 2.1 g/dL (3.4-5.0); Anion Gap 5 mmol/L (6-16); Blood Urea Nitrogen 7 mg/dL (8-24); Bun/Creatinine Ratio 10.8 (12.0-20.0); CO2, Blood 24 mmol/L (21-32); Chloride, Blood 110 mmol/L (98-108); Creatinine, Blood 0.65 mg/dL (0.40-1.00); Glomerular Filtration Rate 100 (60-); Glucose, Blood 103 mg/dL (70-99); Phosphorus, Blood 2.9 mg/dL (2.5-4.9); Potassium, Blood 3.6 mmol/L (3.5-5.5); Sodium, Blood 139 mmol/L (136-145)
[2022-01-12 07:05] LABS: Percent Saturation 11.3 % (15.0-50.0)
[2022-01-12] MEDS ORDERED: Acetaminophen650 M1 PO (14:58)
--- NOTE | 2022-01-12 16:24 | NUR ---
PT DISCHARGED 1530 AOX4. PT TOLERATING CLEAR LIQUIDS AT THIS TIME. PT TREATED FOR MILD ABD PAIN PER EMAR. PT REPORTS HER STOOL WAS STILL LOOSE, BUT FELT SHE WAS READY TO BE HOME. ALL PAPERWORK WAS REVIEWED AND EDUCATIONAL MATERIAL SENT WITH PT. PT COLLECTED PERSONAL BELONGINGS AND WAS ESCORTED OUT TO ENTRANCE VIA WHEEL CHAIR WITH TO TRANSPORT.
== END 2022-01-12 15:30 | disposition home or self-care (01) | DRG 439 ==
LOC: ER 08:58 → MEDS 12:56
PROVIDERS: Family Medicine; Student in an Organized Health Care Education/Training Program; ADMIT Family Medicine
DX: K85.90 Acute pancreatitis without necrosis or infection, unspecified (principal); K86.3 Pseudocyst of pancreas; Z20.822 Contact with and (suspected) exposure to COVID-19; M79.7 Fibromyalgia; I10 Essential (primary) hypertension; F41.9 Anxiety disorder, unspecified; F32.A Depression, unspecified; R74.01 Elevation of levels of liver transaminase levels; K82.8 Other specified diseases of gallbladder; Z98.891 History of uterine scar from previous surgery; Z90.49 Acquired absence of other specified parts of digestive tract; Z88.1 Allergy status to other antibiotic agents; Z79.899 Other long term (current) drug therapy
CPT/HCPCS: 0241U; 36415; 74177; 74181; 80048; 80053; 80069; 80074; 80076; 81001; 82607; 82728; 82746; 83540; 83550; 83690; 83735; 84100; 85025; 85610; 93005; 93010; 94760; 96365-59; 96375; 99285-25; A9270; J1650; J2270; J2765; J3475; J7030; J7120; Q9967

== ENCOUNTER → 2022-03-18 | Outpatient (CLI) | payer OTHER ==
[~2022-03-18] MED LIST changes: +Acetaminophen650 M1 PO
[2022-03-20 13:11] LABS: HPV 16 Negative (Negative); HPV 18 Negative (Negative); HPV OTHER HR TYPES Negative (Negative)
== END ==
LOC: LAB 08:00 → LAB SHORT 08:00
PROVIDERS: Nurse Practitioner Family
DX: Z01.419 Encounter for gynecological examination (general) (routine) without abnormal findings (principal)
CPT/HCPCS: 87624; G0123

== ENCOUNTER → 2023-10-29 | Outpatient (CLI) | payer OTHER | LOC: LAB 07:33 → LAB SHORT 07:33 | DX: R21 Rash and other nonspecific skin eruption (principal) | CPT/HCPCS: 88312 ==